=== PATIENT | female | born 1955 | race Caucasian/White ===

== ENCOUNTER → 2017-04-25 | Day surgery (SDC) | payer BC ==
[~2017-04-25] MED LIST: BIOCLEANSE PO; CORTISPORIN OIN15 GM TOP; KEFLEX500 MG PO; NORCO 5-325 TA1 EACH PO; PLEXUS PROBIOTIC; PLEXUS SLIM PO; VITAMIN D1000 UNI1 PO; [UNRECOGNIZED DRUG - OTHER] PO
--- NOTE | ~2017-04-25 | CON ---
PATIENT'S NAME: MARC [facility] AGE: 62 Y [address] ROOM: [place] [address] LOCATION: [facility] [place] ADMIT DATE: 04/25/2017 Consultation DISCHARGE DATE: FAMILY PHYSICIAN: PHYSICIAN, NO ATTENDING PHYSICIAN: Addy Pete DATE OF CONSULTATION: 04/25/2017 REASON FOR CONSULTATION: Facial injuries. HISTORY: Ms. Ruano presents as a referral from the emergency room due to facial injuries. The patient was out in her yard earlier this evening when she tripped and fell against a garden post. This post caused a deep laceration to the left facial area. No loss of consciousness. The patient has been examined and worked up by the emergency room personnel and I was consulted to repair the injury. PHYSICAL EXAMINATION: GENERAL: The patient is awake and alert. HEENT: There is a small amount of active bleeding from the facial injury. There is a deep laceration that extends from the oral commissure to the lateral nasal sidewall on the left. Vision is intact. Extraocular movements are intact. The patient does complain of decreased sensation to the left cheek, particularly medial and inferior to the wound. No loose dentition. CT scan of the face shows no obvious bony injury. ASSESSMENT: Deep laceration to left facial area with possible minor sensory nerve injury. RECOMMENDATION: The patient will be taken to the operating room for exploration, irrigation, debridement, and closure of this wound. Risks, benefits, and alternatives were discussed in detail with the patient. MD LEN UGALDE/maryl PATIENT'S NAME: M[facility] AGE: 62 Y [address] ROOM: [place] [address] LOCATION: [facility] [place] ADMIT DATE: 04/25/2017 Consultation DISCHARGE DATE: FAMILY PHYSICIAN: PHYSICIAN, NO ATTENDING PHYSICIAN: Addy Pete /[id number] d: 04/29/17 1250 t: 05/02/17 1242, CONSULTATION REPORT
--- NOTE | ~2017-04-25 | ER ---
PATIENT'S NAME: MARC [facility] AGE: 62 Y [address] ROOM: [place] [address] [place] [facility] [place]: 04/25/2017 ER/Outpatient Report DISCHARGE DATE: FAMILY PHYSICIAN: PHYSICIAN, NO ATTENDING PHYSICIAN: Addy Pete TIME SEEN: 2030 hours. HISTORY OF PRESENT ILLNESS: The patient is a 62-year-old female, who states she was working in the yard when she fell. The patient says that she struck the left side of her face on a metal pole. The patient presents with a significant laceration to the left side of her face and left leg. MEDICAL HISTORY: She has no medicinal allergies. CURRENT MEDICATIONS: See her copied list, which are reviewed. MEDICAL HISTORY: No chronic diseases. SURGERIES: Cholecystectomy in 2007 and a tubal ligation. SOCIAL HISTORY: Nonsmoker. She is . Denies alcohol use. REVIEW OF SYSTEMS: HEAD: Denied any head or neck pain. She does complain of some discomfort at the site of the laceration. RESPIRATORY/CARDIOVASCULAR: No chest pain, shortness of breath. GASTROINTESTINAL: No nausea or vomiting. MUSCULOSKELETAL: Denies any joint pain. NEURO: She does complain of some numbness involving the left side of her face. OBJECTIVE FINDINGS: VITAL SIGNS: Blood pressure 150/82, pulse was 100, respirations 20, and O2 saturation is 99%. GENERAL APPEARANCE: She is alert, cooperative. Exam of her face shows a laceration from her nose to the mandible, extends obliquely across to her face. PATIENT'S NAME: MARC [facility] AGE: 62 Y [address] ROOM: [place] [address] [place] [facility] [place]: 04/25/2017 ER/Outpatient Report DISCHARGE DATE: FAMILY PHYSICIAN: PHYSICIAN, NO ATTENDING PHYSICIAN: Addy Pete NEURO: She does have some numbness over the left cheek. She also had a small laceration on her left leg. LABORATORY DATA: CT of facial bones showed some subcutaneous gas. No foreign bodies. 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 ASSESSMENT: 1. Ground-level fall. 2. An approximate 3-4 inch laceration involving the left side of her face. Possible facial nerve involvement. 3. A 3 cm laceration on her right leg. PLAN: The patient was referred to Dr. Zuniga, Plastic surgeon. Please refer to his dictation. IV was established here in the ER. She was also given an update on her tetanus. COSEM CHERY FOR MD DB CARRILLO/zari /[id number] d: 04/26/17222 t: 04/27/171812, OUTPATIENT REPORT
--- NOTE | ~2017-04-25 | OR ---
PATIENT'S NAME: MARC [facility] AGE: 62 Y [address] ROOM: [place] [address] [address]: [facility] [place] ADMIT DATE: 04/25/2017 OR/Procedure Report DISCHARGE DATE: FAMILY PHYSICIAN: PHYSICIAN, NO ATTENDING PHYSICIAN: Addy Pete SURGEON: Addy Pete MD GANG BOSS: DATE OF PROCEDURE: 04/25/2017 PREOPERATIVE DIAGNOSIS: Deep facial laceration, left medial cheek. POSTOPERATIVE DIAGNOSIS: Deep facial laceration, left medial cheek. PROCEDURE PERFORMED: 1. Irrigation and debridement of the facial laceration, left medial cheek skin plus subcutaneous fat, 14 cm2. 2. Complex layered closure, left cheek laceration, 14 cm. INDICATION: Mrs. Ruano is a 62-year-old female, who fell on a garden post earlier this evening, injuring her facial area. No loss of consciousness. The patient presented to the emergency room for evaluation and eventual treatment. Due to the extensiveness of the wound, she was brought to the operating room for irrigation, debridement, and closure. DESCRIPTION OF PROCEDURE: The patient was brought to the operating room, placed supine. General anesthesia was administered. Using normal saline under pressure, the cheek wound was irrigated using 1000 mL of fluid. The facial area was prepped with Betadine and draped sterilely. Gentle probing and evaluation of the wound showed no obvious foreign body. Small bleeding points were controlled with needlepoint cautery. There were edges of the wound which were ragged and small skin islands which were debrided. Once the debridement was completed, the subcutaneous fat was reapproximated with interrupted sutures of 4-0 Vicryl. The dermis was reapproximated with 4-0 Vicryl. The skin was reapproximated with interrupted running sutures of 5-0 Prolene. Antibiotic ointment was applied. The patient was awakened and returned to Recovery in stable condition. ESTIMATED BLOOD LOSS: 10 mL. ADDY PETE MD JRA/modl PATIENT'S NAME: MARC [facility] AGE: 62 Y [address] ROOM: [place] [address] [address]: [facility] [place] ADMIT DATE: 04/25/2017 OR/Procedure Report DISCHARGE DATE: FAMILY PHYSICIAN: KATHY GARZA ATTENDING PHYSICIAN: Addy Pete /[id number] d: 04/26/17325 t: 04/29/17 09, OPERATIVE SUMMARY
== END | disposition disaster alternative care site (69) ==
LOC: GACC 20:19 → GSDC 22:37
PROC: 0JQ10ZZ Repair Face Subcutaneous Tissue and Fascia, Open Approach (ICD-10-PCS; principal; 2017-04-25)
PROC: 0JB10ZZ Excision of Face Subcutaneous Tissue and Fascia, Open Approach (ICD-10-PCS; principal; 2017-04-25)
DX: S01.412A Laceration without foreign body of left cheek and temporomandibular area, initial encounter (principal); Z90.49 Acquired absence of other specified parts of digestive tract; Z98.51 Tubal ligation status; W22.8XXA Striking against or struck by other objects, initial encounter
CPT/HCPCS: J0690; J7120

== ENCOUNTER → 2017-06-24 | Outpatient (CLI) | payer BC ==
[2017-06-24 13:46] LABS: CREATININE 0.8 mg/dL (0.5-1.1)
== END | disposition disaster alternative care site (69) ==
LOC: GLAB 06-23 09:00 → GRAD 06-23 10:00 → GLAB 12:29
PROVIDERS: Family Medicine
DX: G93.9 Disorder of brain, unspecified (principal)
CPT/HCPCS: A9577